=== PATIENT | female | born 1965 | race African-American/Black ===

== ENCOUNTER 2017-12-20 11:25 | Emergency (ER) | payer MEDICAID ==
[~2017-12-20] VITALS: Ht 170.2 cm; Wt 81.6 kg
[2017-12-20 14:39] VITALS: BP 133/87
== END 2017-12-20 15:55 | disposition home or self-care (01) ==
LOC: ER 11:25
DX: S93.401A Sprain of unspecified ligament of right ankle, initial encounter (principal); W01.0XXA Fall on same level from slipping, tripping and stumbling without subsequent striking against object, initial encounter; Y93.89 Activity, other specified; Y92.89 Other specified places as the place of occurrence of the external cause; Y99.8 Other external cause status
CPT/HCPCS: 73600

== ENCOUNTER 2018-03-03 07:27 | Emergency (ER) | payer MEDICAID ==
[~2018-03-03] VITALS: Ht 170.2 cm; Wt 85.7 kg
[2018-03-03 07:46] VITALS: BP 141/93
[2018-03-03] MEDS ORDERED: KETOROLAC TROMETH 60MG/2ML VIAL IM ONE (08:00)
== END 2018-03-03 08:50 | disposition home or self-care (01) ==
LOC: ER 07:27
DX: J02.9 Acute pharyngitis, unspecified (principal)
CPT/HCPCS: 96372; 99283; J1885

== ENCOUNTER 2019-06-19 09:35 | Emergency (ER) | payer MEDICAID ==
[~2019-06-19] VITALS: Ht 170.2 cm; Wt 87.5 kg
[2019-06-19 10:15] VITALS: BP 134/95
[2019-06-19 10:17] LABS: Basophils # (auto) 0.1 uL; Basophils % (auto) 0.8 % (0.0-2.0); Eosinophils # (auto) 0.1 uL; Hematocrit 40.3 % (36.0-46.0); Hemoglobin 13.5 g/dL (12.2-16.2); Lymphocytes # (auto) 3.1 uL; Lymphocytes % (auto) 34.8 % (10.0-50.0); Mean Corpuscular Hemoglobin 28.8 pg (28.0-32.0); Mean Corpuscular Hgb Conc. 33.6 g/dL (32.0-36.0); Mean Corpuscular Volume 85.8 fL (80.0-100.0); Monocytes # (auto) 0.6 uL; Monocytes % (auto) 6.9 % (0.0-12.0); Neutrophils # (auto) 5.1 uL; Neutrophils % (auto) 56.5 % (37.0-80.0); Nucleated Red Blood Cells % 0.1 %; Platelet Count (auto) 303 10^3/uL (140-450); Red Blood Cells 4.69 10^6/uL (4.0-5.20); Red Cell Distribution Width 14.4 % (11.8-14.3)
[2019-06-19 10:32] LABS: Urine Bacteria FEW /hpf (None Seen); Urine Blood Negative /uL (Negative); Urine Specific Gravity 1.015 (1.001-1.035); Urine WBC 47 /hpf (0 - 5)
[2019-06-19 10:36] LABS: BUN/Creatinine Ratio 14.4; Potassium 4.2 mmol/L (3.5-5.1)
[2019-06-19 10:38] LABS: Bilirubin, Total 0.6 mg/dL (0.2-1.0)
[2019-06-19] MEDS ORDERED: MORPHINE SULFATE 4 MG/ML SYR/VIAL IV ONE (11:00)
[2019-06-19] MEDS ORDERED: ONDANSETRON HCL 4 MG/2 ML VIAL IV ONE (11:00)
== END 2019-06-19 11:18 | disposition home or self-care (01) ==
LOC: ER 09:35
DX: N39.0 Urinary tract infection, site not specified (principal)
CPT/HCPCS: 36415; 74176; 80053; 81001; 85025; 96374; 96375; 99284; J2270; J2405

== ENCOUNTER 2020-06-28 07:25 | Emergency (ER) | payer MEDICAID ==
[~2020-06-28] VITALS: Ht 170.2 cm; Wt 86.2 kg
[2020-06-28 07:35] VITALS: BP 133/88
== END 2020-06-28 09:33 | disposition home or self-care (01) ==
LOC: ER 07:25
DX: H10.31 Unspecified acute conjunctivitis, right eye (principal)

== ENCOUNTER 2020-07-02 07:14 | Emergency (ER) | payer MEDICAID ==
[~2020-07-02] VITALS: Ht 170.2 cm; Wt 86.2 kg
[2020-07-02 07:32] VITALS: BP 136/81
== END 2020-07-02 07:41 | disposition home or self-care (01) ==
LOC: ER 07:14
DX: H00.011 Hordeolum externum right upper eyelid (principal)

== ENCOUNTER 2022-03-03 07:14 | Emergency (ER) | payer MEDICAID ==
[~2022-03-03] VITALS: Ht 170.2 cm; Wt 97.5 kg
[2022-03-03 11:31] VITALS: BP 150/77
[2022-03-03] MEDS ORDERED: ACE3T PO (12:29)
[2022-03-03] MEDS ORDERED: KETOROLAC TROMETH 60MG/2ML VIAL IM ONE (12:30)
== END 2022-03-03 12:59 | disposition home or self-care (01) ==
LOC: ER 07:14
DX: S46.911A Strain of unspecified muscle, fascia and tendon at shoulder and upper arm level, right arm, initial encounter (principal); Z90.710 Acquired absence of both cervix and uterus; Z79.899 Other long term (current) drug therapy; X50.1XXA Overexertion from prolonged static or awkward postures, initial encounter; Y93.89 Activity, other specified; Y92.89 Other specified places as the place of occurrence of the external cause; Y99.8 Other external cause status
CPT/HCPCS: 96372; 99283; J1885